=== PATIENT | female | born 1985 | race Caucasian/White ===

== ENCOUNTER 2024-04-29 15:32 | Emergency (ER) | payer OTHER, SELFPAY ==
[2024-04-29 15:40] VITALS: BP 130/84; PULSE 83; RESP 18; TEMP 36.6; O2SAT 100
[2024-04-29] MEDS: FLUORESCEIN SOD 1 MG/STRIP EACH EYE (16:07)
[2024-04-29] MEDS: BALANCED SALT SOLN OPHTH IRRIG 30 ML BTL 10 ML EACH EYE (16:07)
[2024-04-29] MEDS: TETRACAINE HCL 0.5% OPHTH SOLN 4 ML BTL 1 DROP EACH EYE (16:07)
--- NOTE | 2024-04-29 16:18 | ED_ITS ---
HPI - General Adult General Chief complaint: Eye Problems Stated complaint: Eye Problem Source: patient Mode of arrival: ambulatory Limitations: no limitations History of Present Illness HPI narrative: Patient presents for evaluation right eye irritation. Symptom onset this morning. She slept with her contacts since last night. She had to work today she felt like her right was dry. She removed her right contact and applied some contact solution. When she placed the contact back in the right eye she continued to have a burning sensation. Her right eye has since become red and she notes associated tearing. She has swelling to the right upper and lower eyelids. She denies visual disturbance. Denies symptoms in the left eye. Related Data Home Medications ?Medication ?Instructions ?Recorded ?Confirmed ?Last Taken ?Type bupropion HCl 150 mg 24 hr tablet, 150 mg PO QAM 04/29/24 Unknown History extended release dextroamphetamine-amphetamine 20 20 mg PO BID 04/29/24 Unknown History mg tablet escitalopram oxalate 20 mg tablet 20 mg PO DAILY 04/29/24 Unknown History trazodone 50 mg tablet 50 mg PO QHS PRN insomnia 04/29/24 Unknown History Allergies Allergy/AdvReac Type Severity Reaction Status Date / Time No Known Allergies Allergy Verified 04/29/24 15:59 Review of Systems Review of Systems: CONSTITUTIONAL: Denies fever, chills, or sweats. EYES: Reports redness and tearing from the right eye. Reports burning sensation in the right eye ENT: Denies rhinorrhea, congestion, sore throat, or otalgia. CARDIOVASCULAR: Denies chest pain, palpitations, or edema. RESPIRATORY: Denies cough or dyspnea. GASTROINTESTINAL: Denies abdominal pain, nausea, vomiting, or diarrhea. GENITOURINARY: Denies dysuria or hematuria. SKIN: Denies rash or itching. MUSCULOSKELETAL: Denies back pain, joint pain, or myalgia. NEUROLOGIC: Denies headache, numbness, dizziness, or weakness. PSYCHIATRIC: Denies anxiety or depression. [facility] Past Medical History Medical History Anxiety ADD (attention deficit disorder) Surgical History Surgical History History of Family History Family History Mother Family history non-contributory Social History Social History Smoking status: Never smoker Living arrangements: with family Gender identity (if verbalized by the patient): Female Sexual Orientation (if Verbalized by the Patient): Straight or Heterosexual Spiritual care concerns: No Exam Narrative: GENERAL: Well-appearing, well-nourished, and in no acute distress. HEAD: Normocephalic, atraumatic. EYES: Right conjunctival injection with tearing present. No dye uptake when evaluated with fluorescein and Wood's lamp evaluation. PERRLA and EOMI. ENT: Nares clear, no rhinorrhea or epistaxis. Mucous membranes moist. Oropharynx without tonsillar hypertrophy exudate or other lesions. Bilateral TMs pearly mitchell nonbulging NECK: Supple. No adenopathy or masses. No carotid bruits or JVD CHEST: Clear to auscultation. No respiratory distress. No wheezes rales or rhonchi HEART: Regular rate and rhythm. No murmur heard. Normal peripheral pulses. ABDOMEN: Soft, nontender, nondistended, normal active bowel sounds. EXTREMITIES: Normal range of motion. No edema. SKIN: Warm, dry, no rash. NEURO: No focal deficits. Alert and oriented x3. PSYCH: Normal mood and affect. Course Course Emergency Course: This is a 38-year-old female who presented for evaluation of redness and tearing to the right. She has no dye uptake to suggest corneal abrasion or ulceration. Exam is consistent with conjunctivitis. Will discharge with ofloxacin due to contact lens use. Recommended she wear glasses while on abx therapy. Follow up with primary provider. Go to the emergency department for worsening symptoms. Patient in agreement with care Level of Care: Express Care Visit Vital Signs Vital signs: Vital Signs Temperature 36.6 C 04/29/24 15:40 Pulse Rate 83 04/29/24 15:40 Respiratory Rate 18 04/29/24 15:40 Blood Pressure 130/84 04/29/24 15:40 Pulse Oximetry 100 04/29/24 15:40 Oxygen Delivery Room Air 04/29/24 15:40 Temperature 36.6 C 04/29/24 15:40 Pulse Rate 83 04/29/24 15:40 Respiratory Rate 18 04/29/24 15:40 Blood Pressure 130/84 04/29/24 15:40 Pulse Oximetry 100 04/29/24 15:40 Oxygen Delivery Room Air 04/29/24 15:40 Medical Decision Making Vital Signs Vital Signs: Vital Signs Temperature 36.6 C 04/29/24 15:40 Pulse Rate 83 04/29/24 15:40 Respiratory Rate 18 04/29/24 15:40 Blood Pressure 130/84 04/29/24 15:40 Pulse Oximetry 100 04/29/24 15:40 Oxygen Delivery Room Air 04/29/24 15:40 Temperature 36.6 C 04/29/24 15:40 Pulse Rate 83 04/29/24 15:40 Respiratory Rate 18 04/29/24 15:40 Blood Pressure 130/84 04/29/24 15:40 Pulse Oximetry 100 04/29/24 15:40 Oxygen Delivery Room Air 04/29/24 15:40 Discharge Plan Discharge Clinical Impression: Conjunctivitis Patient Disposition: Home, Self-Care Condition: Stable Instructions: Antibiotic Form, Conjunctivitis (ED) Patient Language: Nigerien Prescriptions: New ofloxacin 0.3 % drops See Rx Instructions .ROUTE .COMPLEX Qty: 5 0RF Rx Instructions: put 1-2 drps into affected eye(s) every 2-4 h x 2 days, then 1-2 drps 4 times/day days 3-7 No Action dextroamphetamine-amphetamine 20 mg tablet 20 mg PO BID trazodone 50 mg tablet 50 mg PO QHS PRN (Reason: insomnia) escitalopram oxalate 20 mg tablet 20 mg PO DAILY bupropion HCl 150 mg tablet extended release 24 hr 150 mg PO QAM Follow-up/Referrals: Megan Robertson DO [Physician] - Time of Disposition: 16:17
--- OUTSIDE RECORDS SUMMARY | 2024-05-01 03:00 | XMS_ITS | Clinical Summary ---
Author Organization [facility] [place] [address] [facility] lt Address [address] [place] [address] Care Team Providers Care Finishing Room Supervisor Name Role Phone Greta Dela Cruz DO Primary Care Provider Allergies No known active allergies Medications dextroamphetamine -amphetamine (ADDERALL) 20 mg tablet TAKE 1 TABLET BY MOUTH TWICE A DAY DNF 09/19/21 2 Active escitalopram (LEXAPRO) 10 mg tablet Take 10 mg by mouth daily Active pantoprazole DR (PROTONIX) 40 mg EC tablet Take 40 mg by mouth daily 2 Active silver sulfadiazine (Silvadene) 1 % creamIndications: Sunburn Apply topically 2 (two) times a day Apply to clean wound 30 g 2 Active Active Problems No known active problems Encounters Date Type Department Care Team Description 04/29/2024 Patient Self-Triage [facility] Health[facility]/ Physicians [address] [place] [address] Mychart, Generic Provider from Last 3 Months Surgical History Surgery Date Site/Laterality Comments CHOLECYSTECTOMY SECTION TONSILLECTOMY Medical History Medical History Date Comments Acid reflux Depression ADHD (attention deficit hyperactivity disorder) Social History Tobacco Use Types Packs/Day Years Used Date Smoking Tobacco: Never Smokeless Tobacco: Never Personal Safety Answer Date Recorded Getting School Help Needed Not on file 06/08 Comments Unknown Sex and Gender Information Value Date Recorded Sex Assigned at Not on file Legal Sex Female 11:20 AM CDT Gender Identity Not on file Sexual Orientation Not on file Obstetrics History Last Filed Vital Signs Vital Sign Reading Time Taken Comments Blood Pressure 112/68 10/11/2021 1:28 PM CDT Pulse 77 10/11/2021 1:28 PM CDT Temperature 37.3 ??C (99.2 ??F) 10/11/2021 1:28 PM CD T Respiratory Rate 17 10/11/2021 1:28 PM CDT Oxygen Saturation 99% 10/11/2021 1:28 PM CDT Inhaled Oxygen Concentration - - Weight 71.2 kg (157 lb) 10/11/2021 1:28 PM CDT Height 154.9 cm (5' 1 ) 10/11/2021 1:28 PM CDT Body Mass Index 29.66 10/11/2021 1:28 PM CDT Plan of Treatment Health Maintenance Due Date Last Done Comments Cervical Cancer Screening 1985 Depression Screening 1985 Hepatitis C Screening 1985 DTaP/Tdap/Td Vaccine (1 - Tdap) 1996 Varicella Vaccines (1 of 2 - 13+ 2-dose series) 1998 Hepatitis B Screening 06/23/2003 Regular Well Visit/Exam 18-64 06/23/2003 Influenza Vaccine (#1) 2023 HPV Vaccines Aged Out No longer eligi ble based on patient's age to complete this topic Pneumococcal vaccine <65 Aged Out No longer eligible based on patient's age to complete this topic Insurance [employer] PLUS Care Teams Finishing Room Supervisor Relationship Specialty Start Date End Date Greta Dela Cruz DO PCP - General Family Medicine 10/11/21
--- OUTSIDE RECORDS SUMMARY | 2024-05-01 03:00 | XMS_ITS | Clinical Summary ---
Author Organization [facility] Address [address] [place] [address] Phone Care Team Providers Care Electronic Video Games Servicer Name Role Phone Greta Dela Cruz DO Primary Care Provider Allergies No known active allergies Medications famotidine (PEPCID) 20 mg tablet Take 1 Tablet (20 mg) by mouth 2 times daily. 180 Tablet 3 08/10/2019 Active escitalopram oxalate (LEXAPRO) 10 mg tablet Take 10 mg by mouth daily. Active dextroamphetamin e-amphetamine (ADDERALL) 10 mg tablet Take 10 mg by mouth daily. Active pantoprazole (PROTONIX) 20 mg Tablet, Delayed Release (E.C.) Take 1 Tablet (20 mg) by mouth daily. 90 Tablet 3 12/21/2021 Active pantoprazole (PROTONIX) 40 mg Tablet, Delayed Release (E.C.) TAKE 1 TABLET BY MOUTH EVERY DAY 90 Tablet 3 02/26/2022 Active Active Problems Problem Noted Date Diagnosed Date GERD (gastroesophageal reflux disease) 2 Overview (02/16/2013): EGD 02/2012: Small hiatal hernia. Resolved Problems Problem Noted Date Diagnosed Date Resolved Date Abdominal pain, generalized 04/06/2013 02/22/2014 Immunizations Immunization Administration Dates Next Due (M-M-R II/PRIORIX)(12 MO UP) MEASLES, MUMPS AND RUBELLA VIRUS VACCINE, 0.5 ML IM/SUBCUT 08/01/2017 Family History Medical History Relation Name Comments Healthy Mother Colon Cancer Neg Hx Relation Name Status Comments Father Mother Alive Social History Tobacco Use Types Packs/Day Years Used Date Smoking Tobacco: Never Smokeless Tobacco: Never Tobacco Cessation:Counseling Given: Not Answered Alcohol Use Standard Drinks/Week Comments No 0 (1 standard drink = 0.6 oz pur e alcohol) Comments No Sex and Gender Information Value Date Recorded Sex Assigned at Not on file 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 Gender Identity Not on file Sexual Orientation Not on file Last Filed Vital Signs Vital Sign Reading Time Taken Comments Blood Pressure 139/100 12/21/2021 9:44 AM CDT Pulse 95 12/21/2021 9:44 AM CDT Temperature 36.8 ??C (98.3 ??F) 08/02/2017 7:29 AM CD T Respiratory Rate 16 08/02/2017 7:29 AM CDT Oxygen Saturation 99% 07/31/2017 8:28 PM CDT Inhaled Oxygen Concentration - - Weight 71.7 kg (158 lb) 12/21/2021 9:44 AM CDT Height 154.9 cm (5' 1 ) 12/21/2021 9:44 AM CDT Body Mass Index 29.85 12/21/2021 9:44 AM CDT Plan of Treatment Health Maintenance Due Date Last Done Comments DTAP/TDAP/TD VACCINES (1 - Tdap) 2004 HEPATITIS B VACCINES (1 of 3 - 19+ 3-dose series) 2004 CERVICAL CANCER SCREENING 06/23/2015 INFLUENZA VACCINE (#1) 2023 HPV VACCINES Aged Out No longer eligi ble based on patient's age to complete this topic Insurance [employer] [id number] Advance Directives For more information, please contact: [phone] * Full Code (Latest Code Status on File) Date Activated Date Inactivated Comments 07/29/2017 11:23 AM 08/02/2017 12:53 PM * Full Code Date Activated Date Inactivated Comments 07/29/2017 6:21 AM 07/29/2017 11:23 AM Care Teams Electronic Video Games Servicer Relationship Specialty Start Date End Date Greta Dela Cruz DO PCP - General Family Practice 08/10/19
--- OUTSIDE RECORDS SUMMARY | 2024-05-01 03:00 | XMS_ITS | Referral Summary ---
Author Organization [facility] [place] [address] [facility] lt Address [address] [place] [address] Care Team Providers Care Automobile Upholstery Trim Installer Name Role Phone Greta Dela Cruz DO Primary Care Provider [phone] Encounters Date Type Department Care Team Description 04/29/2024 Patient Self-Triage [facility] HealthCare/ Physicians [address] [place] [address] Mychart, Generic Provider from Last 3 Months Allergies No known active allergies Medications dextroamphetamine [...] Active Active Problems No known active problems Social History Tobacco Use Types Packs/Day Years [...] 10/11/2021 1:28 PM CDT Plan of Treatment Not on file Insurance [facility] CHOICE PLUS Care Teams Automobile Upholstery Trim Installer Relationship Specialty Start Date End Date Greta Dela Cruz DO PCP - General Family Medicine 10/11/21
--- OUTSIDE RECORDS SUMMARY | 2024-05-01 03:00 | XMS_ITS | Encounter Summary ---
Author Organization [facility] Healthcare Address [address] [place] [id number] Care Team Providers Care Health And Safety Manager Name Role Phone Greta Dela Cruz DO Primary Care Provider [phone] Encounter Details Date Type Department Care Team (Late st Contact Info) Description 04/29/2024 Patient Self-Triage [facility] [address] [place] [address] Mychart, Generic Provider [address] [place] [address] Social History Tobacco Use Types Packs/Day Years Used Date Smoking Tobacco: Never Smokeless Tobacco: Never Personal Safety Answer Date Recorded Getting School Help Needed Not on file 06/08 Comments Unknown Sex and Gender Information Value Date Recorded Sex Assigned at Not on file Legal Sex Female 11:20 AM CDT Gender Identity Not on file Sexual Orientation Not on file documented as of this encounter Plan of Treatment Not on file documented as of this encounter Visit Diagnoses Not on filedocumented in this encounter Care Teams Health And Safety Manager Relationship Specialty Start Date End Date Greta Dela Cruz DO PCP - General Family Medicine 10/11/21 documented as of this encounter
== END 2024-04-29 16:20 | disposition home or self-care (01) ==
PROVIDERS: Emergency Provider Nurse Practitioner
DX: H10.9 Unspecified conjunctivitis (principal)
CPT/HCPCS: 99203; A9270; G0463